=== PATIENT | female | born 1950 | race Caucasian/White ===

== ENCOUNTER 2020-07-23 11:56 | Emergency (ER) | payer MEDICARE, SELFPAY ==
[2020-07-23 12:07] VITALS: BP 137/88; PULSE 77; RESP 18; TEMP 36.6; O2SAT 98
--- NOTE | 2020-07-23 12:10 | ED.WOUNDLAC ---
HPI - Wound/Laceration General Chief Complaint: Wound/Laceration Stated Complaint: R/hand laceration Source: patient Mode of arrival: ambulatory Limitations: no limitations History of Present Illness HPI narrative: Patient is a 69-year-old female who presents with a puncture wound to webbing between third and fourth fingers. She reports puncture wound from a knife yesterday. She reports increased redness and tenderness today. She denies other injuries. Reports full range of motion, no numbness or tingling. Related Data Home Medications Medication Instructions Recorded Confirmed Bifidobacterium infantis 4 mg 4 mg PO DAILY 10/06/19 10/14/19 capsule betamethasone dipropionate 0.05 % 1 applic TOPICAL BID PRN 10/06/19 10/14/19 topical cream calcium carbonate 500 mg calcium 500 mg PO BID 10/06/19 10/14/19 (1,250 mg) tablet cholecalciferol (vitamin D3) 50 2,000 unit PO DAILY 10/06/19 10/14/19 mcg (2,000 unit) tablet crisaborole 2 % topical ointment 1 applic TOPICAL BID 10/06/19 10/14/19 ivermectin 1 % topical cream 1 applic TOPICAL DAILY 10/06/19 10/14/19 omega 5-qbe-usu-fish oil 300 1 cap PO TID 10/06/19 10/14/19 mg-1,000 mg capsule Allergies Allergy/AdvReac Type Severity Reaction Status Date / Time ampicillin Allergy Mild Abdominal Verified 07/23/20 12:07 Pain clarithromycin Allergy Unknown Abdominal Verified 07/23/20 12:07 Pain hydrocodone Allergy Unknown Nausea Verified 07/23/20 12:07 Sulfa (Sulfonamide Allergy Unknown Rash Verified 07/23/20 12:07 Antibiotics) sulfanilamide Allergy Unknown Abdominal Verified 07/23/20 12:07 Pain acetaminophen AdvReac Intermediate Nausea and Verified 07/23/20 12:07 Vomiting doxycycline AdvReac Intermediate Abdominal Verified 07/23/20 12:07 Pain oxycodone AdvReac Intermediate Nausea and Verified 07/23/20 12:07 Vomiting Review of Systems Review of Systems: Narrative: CONSTITUTIONAL: Denies fever, chills, or sweats. EYES: Denies visual changes, redness, or discharge. ENT: Denies rhinorrhea, congestion, sore throat, or otalgia. CARDIOVASCULAR: Denies chest pain, palpitations, or edema. RESPIRATORY: Denies cough or dyspnea. GASTROINTESTINAL: Denies abdominal pain, nausea, vomiting, or diarrhea. GENITOURINARY: Denies dysuria or hematuria. SKIN: Denies rash or itching. Reports puncture wound to right hand MUSCULOSKELETAL: Denies back pain, joint pain, or myalgia. NEUROLOGIC: Denies headache, numbness, dizziness, or weakness. PSYCHIATRIC: Denies anxiety or depression. FORMERLY [facility] Past Medical History Medical History History of breast cancer Family History Family History Grandparent Malignant neoplasm of prostate Father Family history of malignant neoplasm of stomach Social History Social History Smoking status: Never smoker Alcohol intake: current Exam Narrative: Exam Narrative: GENERAL: Well-appearing, well-nourished, and in no acute distress. HEAD: Normocephalic, atraumatic. EYES: EOMI. No redness or drainage. Conjunctiva are normal. ENT: Mucous membranes pink and moist. CHEST: No respiratory distress. Clear to auscultation. HEART: Regular rate and rhythm. No murmur appreciated. Normal peripheral pulses. EXTREMITIES: Normal range of motion. No edema. SKIN: Warm, dry, no rash. Approximate 0.5 cm puncture wound noted at webbing between third and fourth digits, mild erythema tenderness with palpation, full range of motion NEURO: No focal deficits. Alert and oriented x3. Gait steady. PSYCH: Normal affect. No signs of depression or anxiety. Course Vital Signs Vital signs: Vital Signs Temperature 36.6 C 07/23/20 12:07 Pulse Rate 77 07/23/20 12:07 Respiratory Rate 18 07/23/20 12:07 Blood Pressure 137/88 07/23/20 12:07 Pulse Oximetry 98 07/23/20
== END 2020-07-23 12:36 | disposition home or self-care (01) ==
PROVIDERS: Emergency Provider Nurse Practitioner; PCP Internal Medicine
DX: S61.431A Puncture wound without foreign body of right hand, initial encounter (principal); W29.1XXA Contact with electric knife, initial encounter; Z85.3 Personal history of malignant neoplasm of breast
CPT/HCPCS: 99213; G0463

== ENCOUNTER 2021-05-02 16:41 | Emergency (ER) | payer MEDICARE, SELFPAY ==
[2021-05-02 16:51] VITALS: BP 143/78; PULSE 83; RESP 18; TEMP 37.1; O2SAT 98
--- NOTE | 2021-05-02 16:59 | ED.SKABFB ---
HPI - Skin/Abscess/Foreign Bdy General Chief complaint: Skin/Abscess/Foreign Body Stated complaint: Rash Time Seen by Provider: 05/02/21 16:45 Source: patient Mode of arrival: ambulatory Limitations: no limitations History of Present Illness HPI narrative: 7-year-old female presents to [facility] with complaints of erythematous itchy rash to her bilateral lower legs for the past 4 to 5 days. Patient reports that she was cutting down weeds on her wedding lawn more few weeks ago. Patient reports that the a few of the areas of rash have become blisterlike. Patient has been applying calamine lotion and taking [id number] Zyrtec with minimal relief. Patient denies shortness of breath, wheezing, trouble swallowing or difficulty breathing MD complaint: rash Onset (ago): day(s) (4) Location: LLE and RLE Quality: pruritic Relieving factors: none Exacerbating factors: none Associated symptoms: denies other symptoms Treatments prior to arrival: OTC topical medication Related Data Home Medications Medication Instructions Recorded Confirmed Bifidobacterium infantis 4 mg 4 mg PO DAILY 10/06/19 05/02/21 capsule calcium carbonate 500 mg calcium 500 mg PO BID 10/06/19 05/02/21 (1,250 mg) tablet cholecalciferol (vitamin D3) 50 2,000 unit PO DAILY 10/06/19 05/02/21 mcg (2,000 unit) tablet omega 8-dqi-glg-fish oil 300 1 cap PO TID 10/06/19 05/02/21 mg-1,000 mg capsule betamethasone valerate 1 applic TOPICAL BID 05/02/21 05/02/21 cetirizine [Zyrtec] 10 mg PO DAILY PRN 05/02/21 05/02/21 Allergies Allergy/AdvReac Type Severity Reaction Status Date / Time ampicillin Allergy Mild Abdominal Verified 07/23/20 12:07 Pain clarithromycin Allergy Unknown Abdominal Verified 07/23/20 12:07 Pain hydrocodone Allergy Unknown Nausea Verified 07/23/20 12:07 Sulfa (Sulfonamide Allergy Unknown Rash Verified 07/23/20 12:07 Antibiotics) sulfanilamide Allergy Unknown Abdominal Verified 07/23/20 12:07 Pain acetaminophen AdvReac Intermediate Nausea and Verified 07/23/20 12:07 Vomiting doxycycline AdvReac Intermediate Abdominal Verified 08/28/20 12:07 Pain oxycodone AdvReac Intermediate Nausea and Verified 07/23/20 12:07 Vomiting Review of Systems Constitutional: Constitutional: Denies chills, Denies fatigue, Denies fever(s) and Denies weakness ENT: Denies dysphagia and Denies sore throat Cardiovascular: Cardiovascular: Denies chest pain, Denies rapid heart rate, Denies radiating jaw, neck or arm pain and Denies slow heart rate Respiratory: Respiratory: Denies cough, Denies dyspnea and Denies wheezing Gastrointestinal: Gastrointestinal: Denies abdominal pain, Denies diarrhea, Denies nausea and Denies vomiting Integumentary/Breasts: Skin/Breast: Reports rash PMFSH Past Medical History Medical History (Updated 05/02/21 @ 17:04 by Dalia Echeverria APRN) Carpal tunnel syndrome Frozen shoulder History of breast cancer Surgical History Surgical History H/O: hysterectomy Family History Family History Grandparent Malignant neoplasm of prostate Father Family history of malignant neoplasm of stomach Social History Social History Smoking status: Never smoker Alcohol intake: current Gender identity (if verbalized by the patient): Female Comments At time of signature, I agree with nursing past medical, surgical, social and family history. There is no relevant family history pertinent to the presenting complaint. Exam Const: General: no acute distress Nutritional Appearance: well nourished Orientation/consciousness: patient oriented x3 Neck: Neck: normal visual inspection Resp: Effort & Inspection: normal respiratory effort, not labored and not tachypneic Auscultation: clear to auscultation bilaterally Cardio: Rate: reg
== END 2021-05-02 17:07 | disposition home or self-care (01) ==
PROVIDERS: Emergency Provider Nurse Practitioner Family; PCP Internal Medicine
DX: L30.9 Dermatitis, unspecified (principal); Z85.3 Personal history of malignant neoplasm of breast
CPT/HCPCS: 99213; G0463